=== PATIENT | female | born 1985 | race Caucasian/White ===

== ENCOUNTER 2024-09-18 13:12 | Emergency (ER) | payer BC, MEDICARE, MEDICAID, SELFPAY ==
--- NOTE | ~2024-09-18 | CT_ITS ---
EXAMINATION: CT brain wo con DATE: 09/18/2024 14:53 INDICATION: Headache. History of brain tumor. TECHNIQUE: Computed tomography (CT) of the head was performed without intravenous contrast. The mA wa s adjusted according to patient size. Iterative reconstruction technique was employed. Exam dose: 60 5.33 mGy-cm total exam DLP. COMPARISON: None FINDINGS: No intracranial mass lesion or hemorrhage or cerebrovascular accident, midline shift or mas s effect is evident. History of brain tumor is given; consider comparison with prior imaging studies and/or MR imaging for more definitive evaluation for reported neoplasm, which is not readily evident on this limited nonco ntrast CT examination. Normal ventricular size. No subdural or epidural hematoma. The orbital contents are unremarkable. Status post left temporal partial mastoidectomy. The mastoid air cells are otherwise unremarkable. In cluded paranasal sinuses are normally developed and aerated. No fracture or bone destruction of the cranial vault. IMPRESSION: No acute intracranial finding Recommendation comparison with prior CT or MR head imaging studies, or new MR brain Imaging, given the history of brain tumor, which is not readily evident on this limited noncontrast C T examination. Reviewed, dictated and finalized at [facility]. Reviewed, dictated and finalized at [facility] [employer] IMPRESSION: No acute intracranial finding Recommendation comparison with prior CT or MR head imaging studies, or new MR b rain Imaging, given the history of brain tumor, which is not readily evident on this limited noncontrast CT examination.
[2024-09-18 13:14] VITALS: BP 136/79; PULSE 90; RESP 16; TEMP 36.4; O2SAT 98
[2024-09-18 13:37] VITALS: BP 116/77; PULSE 87; RESP 20; TEMP 36.4; O2SAT 98
--- NOTE | 2024-09-18 14:38 | ED.HA ---
HPI - Headache General Chief Complaint: Headache Stated Complaint: headache Time Seen by Provider: 09/18/24 14:09 Source: patient Mode of arrival: ambulatory Limitations: no limitations History of Present Illness HPI Narrative: Patient presents with a headache that started today. She has a history of headaches. Usually Excedrin helps but not today. It is across her bilateral front of head. No photophobia/phonophobia although she is laying in dark room at the time. No similar symptoms with others in the household. Associated with nausea but no vomiting. 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 Related Data Allergies Allergy/AdvReac Type Severity Reaction Status Date / Time No Known Allergies Allergy Verified 09/18/24 14:54 [facility] Past Medical History Medical History Paraganglioma Surgical History Surgical History History of brain surgery NSGY [facility] Exam Narrative: GENERAL: Well-appearing, well-nourished, and in no acute distress. HEAD: Normocephalic, atraumatic. EYES: Non injected, non icteric. PERRL. No APD. ENT: Nares clear, no rhinorrhea or epistaxis. Deaf/hard of hearing in one ear but better in other ear. NECK: Supple. No meningismus. CHEST: Speaking in full sentences. No respiratory distress. HEART: Regular rate and rhythm. . ABDOMEN: Soft, nondistended. EXTREMITIES: Normal range of motion. No lower extremity edema. SKIN: Warm, dry, no rash. NEURO: No focal deficits. Alert and oriented x3. Sensation intact throughout. Speaks clearly without aphasia or dysarthria. Moves extremities x4. No abnormal movements appreciated. PSYCH: Normal mood and affect. Course Vital Signs Vital signs: Vital Signs Temperature 97.6 F 09/18/24 13:14 Pulse Rate 90 09/18/24 13:14 Respiratory Rate 16 09/18/24 13:14 Blood Pressure 136/79 09/18/24 13:14 Pulse Oximetry 98 09/18/24 13:14 Oxygen Delivery Room Air 09/18/24 13:14 Temperature 97.8 F 09/18/24 17:37 Pulse Rate 77 09/18/24 17:37 Respiratory Rate 14 09/18/24 17:37 Blood Pressure 112/68 09/18/24 17:37 Pulse Oximetry 99 09/18/24 17:37 Oxygen Delivery Room Air 09/18/24 13:14 MDM - Headache MDM Narrative Medical decision making narrative: Patient presents with headache. In the emergency department they are afebrile with vital signs within normal limits. While her age, history, and physical exam support benign etiologies, her stated history of paraganglioma puts her at risk. For this reason, discussed obtaining head CT and starting with conservative management of PO acetaminophen. If negative (which it is - for acute process and otherwise), headache cocktail to be initiated. Patient given IV fluids, ketorolac, compazine, and diphenhydramine. On reassessment, headache improving but not yet resolved. Given magnesium. On re evaluation, patient states headache doing much better. Still present but would like to go home to rest at this time. Stable for discharge home. Given a dose of dexamethasone as this has been shown to be effective at reducing the likelihood of bounceback/rebound headache. Recommended prompt follow up with patient's physician(s). Provided prescriptions for otherwise over the counter pain medications. Differential Diagnosis Differential diagnosis: Likely migraine, tension headache, subarachnoid hemorrhage, headache, meningitis and other (carbon monoxide poisoning; complications related to tumor (edema, intracranial hemorrhage, etc.)) Imaging Data Radiologist's impression: IMPRESSION: No acute intracranial finding Recommendation comparison with prior CT or MR head imaging studies, or new MR brain Imaging, given the history of brain tumor, which is not readily evident on this limited noncontrast CT examination. Discharge Plan Discharge Clinical Impression: Headache Patient Disposition: Home, Self-Care Condition: Stable Instructions: Antibiotic Form, Acute Headache (ED) Additional Instructions: it is safe to take the prescribed medications in combination for headache. Follow-up with your primary care physician. if you do not have 1 the name of the doctors listed below. Keep any upcoming appointments you have with your neurosurgeon. Return to the emergency department with any new or worsening symptoms. Rest and maintain your hydration. Prescriptions: New ibuprofen 600 mg tablet 600 mg PO TID PRN (Reason: pain) Qty: 30 0RF acetaminophen 500 mg capsule 1,000 mg PO Q6H PRN (Reason: pain) Qty: 30 0RF Follow-up/Referrals: PHYSICIAN NOT ON STAFF,NONSTAFF [Primary Care Provider] - Lew Betancourt MD [Physician] - ( Family practice) Stand Alone Forms: Work/School Release IP Time of Disposition: 17:07
[2024-09-18] MEDS: Please add drug allergy info to patient profile. 1 EACH XX (14:55)
[2024-09-18] MEDS: ACETAMINOPHEN 500 MG TABLET 1000 MG PO (14:56)
[2024-09-18] MEDS: KETOROLAC 15 MG/ML VIAL (*BKC) IV PUSH (15:40)
[2024-09-18] MEDS: diphenhydrAMINE HCl INJ 50 MG/ML VIAL 25 MG IV PUSH (15:40)
[2024-09-18] MEDS: SODIUM CHLORIDE 0.9% IV 1,000 ML 999 ML IV CONT (15:50)
[2024-09-18] MEDS: PROCHLORPERAZINE EDISYLATE 10 MG/2 ML VIAL 5 MG IV PUSH (15:56)
[2024-09-18] MEDS: MAGNESIUM SULF 1 GM/D5W 100 ML 1 GM/100 ML BAG IVPB (16:25)
[2024-09-18] MEDS: dexAMETHasone 2 MG TABLET 10 MG PO (16:50)
[2024-09-18 17:37] VITALS: BP 112/68; PULSE 77; RESP 14; TEMP 36.6; O2SAT 99
== END 2024-09-18 17:37 | disposition home or self-care (01) ==
PROVIDERS: Emergency Provider Student in an Organized Health Care Education/Training Program
DX: R51.9 Headache, unspecified (principal); D43.2 Neoplasm of uncertain behavior of brain, unspecified
CPT/HCPCS: 70450; 96361; 96365; 96375; 99284; A9270; J0780; J1200; J1885; J3475; J7030; J8540